=== PATIENT | male | born 1940 | race Caucasian/White ===

== ENCOUNTER 2018-08-11 14:42 | Emergency (ER) | payer MEDICARE, OTHER ==
[~2018-08-11] VITALS: Ht 182.9 cm; Wt 97.0 kg
[~2018-08-11 14:42] MED LIST: ASPI-831 PO; CARV3.1260 PO; DOCU-144 PO; FAMO20TA18 PO; FLUC100T PO; GLIM4TAB55 PO; LISI10TA2 PO; MIRT15TA PO; NYST1000 PO; TAMS-14 PO; TYL650R PR
[2018-08-11 14:47] VITALS: BP 163/84; PULSE 94; RESP 20; Ht 182.9 cm; Wt 97.0 kg
[2018-08-11] MEDS ORDERED: METHYLPREDNISOLONE 125 MG INJ IM ONE (15:30)
--- NOTE | 2018-08-11 15:31 | ERD ---
ER Documentation Chief Complaint Chief Complaint cough x 1 week HPI Patient is a 77 years old male with PMHx of DMII presenting to the clinic for cough w/ green sputum, fever, chills, throat pain, nasal congestion, bodyaches, and headaches x 1 week. Patient reports taking OTC Mucinex and Tylenol without resolution. ROS All systems reviewed and are negative except as per history of present illness. Medications Home Meds Active Scripts Azithromycin* (Zithromax*) 500 Mg Tablet, 500 MG PO DAILY for 3 Days, TAB Prov:JENNA WOOD PA-C 08/11/18 Methylprednisolone* (Medrol* DOSE PACK) 4 Mg/Dose-Pack Tab.ds.pk, 4 MG PO . DI RECTED for 5 Days, PACKET Prov:JENNA WOOD PA-C 08/11/18 Tbkudggrcbl-G-Nkytbfbwly Hb* (Guaifenesin* DM Syrup) 120 Ml Syrup, 10 ML PO Q4H PRN for COUGH for 7 Days, #120 ML Prov:JENNA WOOD PA-C 08/11/18 Tamsulosin Hcl* (Flomax*) 0.4 Mg Cap.er.24h, 0.4 MG PO HS for 60 Days, CAP Prov:FACUNDO KNOTT MD 10/23/15 Mirtazapine* (Remeron*) 15 Mg Tablet, 15 MG PO HS for 60 Days, TAB Prov:FACUNDO KNOTT MD 10/23/15 Nystatin (Nystatin) 100,000 Unit/1 Ml Oral.susp, 5 ML PO QID for 14 Days, BOT Prov:FACUNDO KNOTT MD 10/21/15 Lisinopril* (Lisinopril*) 10 Mg Tablet, 10 MG PO DAILY for 30 Days, #30 TAB Prov:FACUNDO KNOTT MD 10/21/15 Glimepiride* (Amaryl*) 4 Mg Tablet, 4 MG PO WITH BREAKFAST for 30 Days, #30 TAB Prov:FACUNDO KNOTT MD 10/21/15 Fluconazole* (Diflucan*) 100 Mg Tablet, 100 MG PO DAILY for 30 Days, #30 TAB Prov:FACUNDO KNOTT MD 10/21/15 Docusate Sodium* (Colace*) 100 Mg Capsule, 100 MG PO Q12H PRN for CONSTIPATION for 30 Days, #60 CAP Prov:FACUNDO KNOTT MD 10/21/15 Famotidine* (Famotidine*) 20 Mg Tablet, 20 MG PO BID for 30 Days, #60 TAB Prov:FACUNDO KNOTT MD 10/21/15 Carvedilol* (Carvedilol*) 3.125 Mg Tablet, 3.125 MG PO BID for 30 Days, #60 TAB Prov:FACUNDO KNOTT MD 10/21/15 Aspirin (Aspirin) 81 Mg Chew, 81 MG PO DAILY for 30 Days, #30 TAB Prov:FACUNDO KNOTT MD 10/21/15 Acetaminophen* (Acephen*) 650 Mg Supp, 650 MG ND Q6H PRN for PAIN AND OR ELEVATED TEMP for 30 Days, #120 SUPP Prov:FACUNDO KNOTT MD 10/21/15 Allergies Allergies: Coded Allergies: No Known Allergy (Verified , 04/26/12) PMhx/Soc History of Surgery: No Anesthesia Reaction: No Hx Neurological Disorder: No Hx Respiratory Disorders: No Hx Cardiac Disorders: Yes (htn) Hx Psychiatric Problems: No Hx Miscellaneous Medical Probl: Yes (HTN, DM, dyslipidemia) Hx Alcohol Use: No Hx Substance Use: No Hx Tobacco Use: No FmHx Family History: No diabetes, No coronary disease, No other Physical Exam Vitals Vital Signs Date Temp Pulse Resp B/P (MAP) Pulse Ox O2 O2 Flow FiO2 Time Delivery Rate 08/11/18 98.4 94 20 163/84 96 14:47 (110) Physical Exam Const: No acute distress Head: Atraumatic Eyes: Normal Conjunctiva ENT: Normal External Ears, Nose and Mouth. Mild oropharyngeal erythema. Neck: Full range of motion. No meningismus. Resp: Decreased breath sound bilaterally. Cardio: Regular rate and rhythm, no murmurs Neur: Awake and alert Psych: Normal Mood and Affect Results 24 hrs Current Medications Medications Dose Sig/Benja Start Time Status Last (Trade) Ordered Route PRN Stop Time Admin Dose Reason Admin 125 mg ONCE ONCE 08/11/18 DC 08/11/18 Methylprednis IM 15:30 15:38 olone Sodium 08/11/18 15:31 Succinate (Solu-Medrol) Ceftriaxone 1 gm ONCE ONCE 08/11/18 DC 08/11/18 Sodium IM 16:30 16:47 (Rocephin) 08/11/18 16:31 Lidocaine 20 ml ONCE ONCE 08/11/18 DC 08/11/18 (Xylocaine SC 16:30 16:47 1% (Mdv) 20 08/11/18 16:31 ml) Procedures/MDM Patient was seen and evaluated for viral URI with cough. CXR revealed There is left lung base atelectasis versus scarring. Patient was given Solumedrol IM and Rocephin 1G IM with significant improvement of symptoms. Patient is stable and ready for discharge. F/U with PCP. Patient will be discharged with medrol dosepak, guaifenesin DM, and Azithromycin 500mg PO QD x 3D. Departure Diagnosis: Primary Impression: Atelectasis Additional Impression: Upper respiratory infection URI type: unspecified viral URI Qualified Codes: J06.9 - Acute upper respiratory infection, unspecified Condition: Stable Patient Instructions: Preventing Common Respiratory Infections Referrals: [facility] Additional Instructions: Paciente aconseja volver a Departamento de urgencias inmediatamente para sntomas nuevos o que empeoran . Paciente aconseja posteriores con el PCP en 2-3 manning . Paciente verbaliza la comprehensin y est de acuerdo con el tratamiento y el curso de accin. Si el paciente no tiene ninguna de atencin primaria pueden seguir con [facility] [address] [place] [address] o [facility] + [address] [address] JENNA WOOD PA-C Aug 11, 2018 15:31
[2018-08-11] MEDS ORDERED: MED4DP PO (15:32)
[2018-08-11] MEDS ORDERED: GUAI120S25 PO (15:32)
[2018-08-11] MEDS ORDERED: AZIT500T3 PO (16:24)
[2018-08-11] MEDS ORDERED: LIDOCAINE 1% (MDV) 20 ML INJ SC ONE (16:30)
[2018-08-11] MEDS ORDERED: CEFTRIAXONE 1 GM INJ IM ONE (16:30)
== END 2018-08-11 16:57 | disposition home or self-care (01) ==
LOC: FTE 14:42
DX: J98.11 Atelectasis (principal); E11.9 Type 2 diabetes mellitus without complications; I10 Essential (primary) hypertension; J06.9 Acute upper respiratory infection, unspecified; Z79.82 Long term (current) use of aspirin
CPT/HCPCS: 71046; 96372; 99284; J0696; J2930